=== PATIENT | male | born 1950 | race Caucasian/White ===

== ENCOUNTER 2016-10-18 06:47 | Day surgery (SDC) | payer MEDICARE ==
[~2016-10-18] VITALS: Ht 172.7 cm; Wt 79.1 kg
[2016-10-18] VITALS (9 sets, daily range): BP systolic 109–148; BP diastolic 77–100; PULSE 71–97; RESP 10–21; O2SAT 97–100
--- NOTE | 2016-10-18 06:39 | PCM.HPANE ---
Patient Data Surgeon Admitting Provider: Attending Provider:Carmenza Chacon MD Primary Care Physician:Abel Gilmore MD Other Provider:Liz Doyleingham Anesthesia Reason for Visit History Of Bladder Cancer Ht/WT & BMI Height (Feet): 5 Height (Inches): 8 Weight (Kilograms): 79.56 Body Mass Index 26.00 Allergies Coded Allergies: morphine (Verified Adverse Reaction, Severe, N&V, 03/08/16) Uncoded Allergies: CODIENE (Adverse Reaction, Severe, N&V, 03/08/16) Past Anesthesia History Anesthesia History: Denies:: Abnormal Airway, Anesthesia Reactions, Fam Anesthesia Reaction, Fam Malignant Hypertherm, Malignant Hyperthermia Diabetes History Hx Diabetes?: No MRSA MRSA: No Medications Blood Thinner: Aspirin Hypertension Medication: Yes Home Meds Incl Beta Corinne: No Reported Medications Cholecalciferol (Vitamin D3) (Vitamin D3)1,000 Unit Tab.chew1,000 Unit PO DAILY 10/14/16 Aspirin 81 Mg [id number] Mg PO DAILY Ref 0 10/14/16 Amlodipine 5 Mg Tablet5 Mg PO DAILY Ref 0 10/14/16 Discontinued Reported Medications Hydrocodone-Acetaminophen 5-325 mg 1 Each Tablet1 Tablet PO BID PRN For Pain # 60 TABLET Ref 0 06/15/16 Ibuprofen 600 Mg [id number] Mg PO QID PRN For Pain Ref 0 06/15/16 Amlodipine 5 Mg Tablet5 Mg PO DAILY Ref 0 03/03/16 History History of ENT Problems?: Yes HEENT History: Denies:: Abnormal Airway Cataracts Dysphagia (cervical fusion left some scar tissue, dysphagia in the past, resolved) Hearing Problem Sinus Problem Denture Type: None Teeth Condition: Within Normal Limits Hx of Heart Problems?: Yes Cardiovascular History: Positive for:: Chest Pain ("small enlargement of the aorta", . [facility], resolved CP) Hypertension Denies:: Atrial Fibrillation Cardiac Surgery Congestive Heart Failure Edema Heart Murmur Irregular Heartbeat Pacemaker Rheumatic Fever Hx of Respiratory Problem?: No Respiratory History: Denies:: Asthma COPD Chest Surgery Cough Dyspnea Hemoptysis Pneumonia Tuberculosis Use of C-PAP Machine Hx Neurologic Problems?: No Neurological History: Denies:: Alzheimer's Disease CVA Dizziness Headaches Multiple Sclerosis Parkinson's Disease Seizures Hx of GI Problems?: Yes Hx of Problems?: Yes Genitourinary History: Denies:: HX of Hemodialysis Kidney Stones Urinary Tract Infection (couple years ago) HX of Peritoneal Dialysis: No Other Pertinent History: hx bladder cancer- current admission problem Male Hx: Positive for:: Prostate Problems (hx of) Denies:: Scrotal Mass Testicular Surgery Skin History: Denies:: History Skin Disorders? Pressure Ulcers Hx Musculoskeletal Problems?: Yes Musculoskeletal History: Denies:: Back Injury Degenerative Joint Joint Replacement Systemic Lupus Psycho Social History: Denies:: Anxiety Hx Depression Hx Surgeries?: Yes (Appendectomy, turbt) Hx Any Other Health Problems?: Yes Other History: Positive for:: Cancer (bladder) Denies:: Hospitalization Thyroid Disease History Blood Transfusions: Denies:: Blood Transfusions Hx Diabetes: No Hx Alcohol Use: YesHx Substance Use: Yes Smoking Status: Current Every Day Smoker Have You Smoked inLast 12 mo: No Stop/Bang S-Snoring: Do You Snore Loudly: No T-Tired: feel tired, fatigued: No O-Obsered: Observed not breath: No P-Blood Pressure: treated: Yes B- Body Mass Index > 35 kg/m2: No A- Age over 50: Yes N- Neck Large Circumference: No G- Gender Male: Yes LAURIE Total Score: 3 Risk Assessment Category Category 1A: Patient has history of documented sleep apnea, and HAS NOT received any narcotic, sedative or anesthesia administration during this stay. Category 1B: Patient has history of documented sleep apnea, and HAS received any narcotic , sedative or anesthesia administration during this stay Category 2: Patient has SUSPECTED Obstructive Sleep Apnea, and HAS received any narcotic , sedative or anesthesia administration during this stay. Category 3: Patient has SUSPECTED Obstructive Sleep Apnea and HAS NOT received narcotic, sedative or anesthesia administration during this stay. Category 4: Outpatient in Procedural Areas with known sleep apnea or who screen positive for High Risk via the STOP/BANG questionnaire. Exam Exam General Appearance: Alert, Oriented X3, Cooperative HEENT/AIRWAY: MP 2, Neck Movement (from), Mouth Opening (wnl dentures) Lungs: Clear to Auscultation Heart: Exam Unremarkable Plan Impression Patient chart reviewed, patient interviewed and anesthestic plan with risks, benefits, and alternatives discussed, and informed consent obtained. ASA Physical Status: ASA2 Mod Systemic Disease Anesthetic Plan: GA Bene/Risks/Altern/Consents: Yes HP Complete Prior to Induction: Yes William Richardson MD October 18, 2016 06:39
[~2016-10-18 06:47] MED LIST: AMLO5TAB2 PO; ASPI-973 PO; CHOL10008 PO; CeFAZolin Inj 2 GM in IV Premix 1 EACH IV SCH; Lactated Ringer's 1,000 ML IV ONE
[2016-10-18] MEDS ORDERED: fentaNYL-PF 50 mCg/mL 2 mL Inj ONE (06:48)
[2016-10-18] MEDS ORDERED: Ondansetron 2 mg/mL 2 mL Inj ONE (06:48)
[2016-10-18] MEDS ORDERED: Propofol 10,000 mCg/mL 20 mL Inj ONE (06:48)
[2016-10-18] MEDS ORDERED: Lactated Ringer's 1,000 ML IV SCH (08:34)
[2016-10-18] MEDS ORDERED: Lactated Ringer's 500 ML IV PRN (08:34)
[2016-10-18] MEDS ORDERED: Atropine 0.4 mg/mL Inj IVPUSH PRN (08:35)
[2016-10-18] MEDS ORDERED: Ondansetron 2 mg/mL 2 mL Inj IVPUSH PRN (08:35)
[2016-10-18] MEDS ORDERED: EPHEDrine Sulfate 50 mg/mL Inj IVPUSH PRN (08:35)
[2016-10-18] MEDS ORDERED: Phenylephrine 10,000 mCg/mL Inj IVPUSH PRN (08:35)
[2016-10-18] MEDS ORDERED: Dexamethasone 4 mg/mL Inj IVPUSH PRN (08:35)
[2016-10-18] MEDS ORDERED: Labetalol 5 mg/mL 4 mL Inj IV PRN (08:35)
[2016-10-18] MEDS ORDERED: hydrALAZINE 20 mg/mL Inj IVPUSH PRN (08:35)
[2016-10-18] MEDS ORDERED: HYDROmorphone 1 mg/mL Inj IVPUSH PRN (08:35)
[2016-10-18] MEDS ORDERED: HYDROcodone-APAP 5-325 mg Tablet PO PRN (09:20)
[2016-10-18] MEDS: fentaNYL-PF 50 mCg/mL 2 mL Inj IVPUSH PRN ×2 (09:21→09:25)
--- NOTE | 2016-10-18 09:32 | PCM.ANEP1 ---
Post Anesthesia Phase 1 PACU Phase 1 Assessment Vital Signs Vital Signs Date Time Temp Pulse Resp B/P Pulse Ox O2 Delivery O2 Flow Rate FiO2 10/18/16 09:20 36.9 79 14 138/87 97 Room Air 10/18/16 09:15 92 14 139/88 98 Room Air 10/18/16 09:10 91 14 148/89 97 Room Air 10/18/16 09:05 97 21 112/80 100 Simple Mask 8 10/18/16 09:00 36.7 80 10 109/77 100 Simple Mask 8 10/18/16 07:03 36.0 89 16 144/100 99 Room Air Anesthetic Administered: GA Level of Alertness: Awake, talking SINGLETON's with Equal Strength: Yes Pain: No Nausea or Vomiting: No Oxygen Delivery: Room Air Lungs: Normal Air Movement Complications: No Follow up Care: No William Richardson MD October 18, 2016 09:32
--- NOTE | 2016-10-18 20:16 | OP ---
[address] [address] OPERATIVE REPORT PATIENT: BEAU TRIANA : 1950 MR#: [id number] ADMIT: 10/18/2016 JOB ID: [id number] DATE OF SURGERY: 10/18/2016 PREOPERATIVE DIAGNOSIS(ES): History of bladder cancer. POSTOPERATIVE DIAGNOSIS(ES): History of bladder cancer. PROCEDURE PERFORMED: 1. Cystoscopy. 2. Bladder biopsy. SURGEON: Carmenza Chacon MD MANUAL ARTS THERAPY TEACHER: None. FINDINGS: No evidence of grossly recurrent bladder tumor. ANESTHESIA: General. ESTIMATED BLOOD LOSS: 1 mL. DRAINS: None. SPECIMENS: Bladder biopsies. COMPLICATIONS: None. CONDITION: Stable. INDICATIONS FOR PROCEDURE: The patient is a 66-year-old gentleman who is status post chemoradiation for bladder cancer. He wished to preserve his bladder and not proceed with radical cystectomy. He now presents for cystoscopy and bladder biopsy. The patient was counseled as to the CT scan findings that there is a sclerotic lesion on his lumbar vertebra. I have recommended that this be biopsied. He is amenable to this and I will send a referral. DESCRIPTION OF PROCEDURE: After informed consent was obtained, the patient was taken to the operating room. A time-out was performed identifying correct patient, surgical site, and procedure. General anesthesia was smoothly induced. He was placed in lithotomy position and all pressure points were identified and appropriately padded. His genitals were then prepped and draped in usual sterile fashion. A 22-Peruvian rigid cytoscope was applied to the patient's urethra, and advanced to the bladder and the bladder drained. Bladder was systematically inspected with both 30 and 70 degree lenses. There appeared to be no gross evidence of recurrent bladder tumor. Bladder biopsies were taken at the base and lateral aspects of the bladder. These are passed off as bladder biopsies. Bugbee electrocautery was used to cauterize the sites. The bladder was drained. Bladder was reinspected and there was excellent hemostasis. The patient was then reversed from general anesthesia and taken to the PACU in good and stable condition. [facility]
--- NOTE | 2016-10-21 19:49 | PATH ---
SURGICAL PATHOLOGY Attending Physician:Carmenza Chacon, CASE STATUS: Signed Out PATIENT NAME: BEAU TRIANA PID: [id number] : 1950 DATE COLLECTED:10/18/2016 17:20 SPECIMEN: Bladder, Biopsy CLINICAL HISTORY: HX OF BLADDER CANCER 1). MULTIPLE BLADDER BIOPSIES FINAL DIAGNOSIS: Multiple Bladder Biopsies: Atypical stromal cells, consistent with a reactive etiology by immunohistochemistry studies. Negative for urothelial dysplasia and neoplasia. Please see comment. ICD10: Z85.51 NOTE: Sections demonstrate scattered groups of small, cohesive-appearing cell groups within the stroma that are present in a background of remote hemorrhage and fibrosis. The stromal cell groups are negative for cytokeratin immunostaining (JOSE), supporting a reactive etiology. There is no evidence of urothelial dysplasia or neoplasia. This patient's previous TURBT slides ([id number]) were reviewed. GROSS DESCRIPTION: The specimen is received in one formalin filled container labeled with the patient's name, sublabeled "multiple bladder biopsies" and consists of 3 portions of tissue which aggregate to 0.4 x 0.4 x 0.3 CM. The specimen is entirely submitted in one cassette. 10/18/2016 DAC MICRO DESCRIPTION: IMMUNOSTAIN: Block 1A: JOSE: Condensed stromal cells negative. INTERPRETATION: The atypical stromal cells are negative for JOSE immunostain, which supports a reactive origin (possibly due to chemotherapy or radiation) and mitigates against the presence of carcinoma. * This test was developed and its performance characteristics determined by [facility]. It has not been cleared or approved by the U.S. Food and Drug Administration. The FDA has determined that such clearance or approval is not necessary. This test is used for clinical purposes. It should not be regarded as investigational or for research. ICD-9 CODES: CPT CODES: 1: 16682, 02355 Electronically Signed Out Carmenza Ware MD [facility] [address], [place] [address] Technical component performed at [facility], [address], [place], [address]
== END 2016-10-18 23:59 | disposition home or self-care (01) ==
LOC: SAS 06:47
PROVIDERS: ATTEND Urology
DX: Z85.51 Personal history of malignant neoplasm of bladder (principal); Z92.21 Personal history of antineoplastic chemotherapy; Z92.3 Personal history of irradiation; Z79.82 Long term (current) use of aspirin
CPT/HCPCS: 52204; J0690; J2405; J3010; J7120